=== PATIENT | male | born 1950 | race Caucasian/White ===

== ENCOUNTER 2020-11-17 17:28 | Emergency (ER) | payer OTHER, MEDICARE ==
--- NOTE | 2020-11-17 20:36 | EDM.PDOC ---
ED HPI GENERAL MEDICAL PROBLEM - General Chief Complaint: Back Pain or Injury Stated Complaint: NEUROPOTHY/BACK AND LEG PAIN/WEAK Time Seen by Provider: 11/17/20 20:10 Source of Information: Reports: Patient History Limitations: Reports: No Limitations - History of Present Illness INITIAL COMMENTS - FREE TEXT/NARRATIVE: Presents emergency room today secondary to increasing low back pain and leg weakness. Dates that he is visiting from the [facility] has been appear the last 2 days and has noted increasing pain and weakness when up and about today he felt the pain got so great that his legs were unable to support him he is sleeping on a strange bed as they are seen in a local motel he reports that low back pain is sharp in nature 8-9 out of 10 currently when attempting to get up and move around it is a 10 out of 10 sharp in nature his legs he states feel achy increased and burning sensation. States that he does have a fall history although it has been a couple of years since he has had any falls and that has occurred on stairs at his house in which she has hand rails has not had any recent problems. 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 Patient states that he uses medical marijuana for chronic pain plus a cream to his legs which seems to help with sleep he states usually he does take the medical marijuana which is liquid at night as well as the cream on his legs and he is able to wake up fairly pain- free in the morning but as the day progresses he has increasing low back pain peripheral neuropathy achiness and weakness that increases in nature. Days ER visit is not different other than it is increased in nature overall. Denies any recent falls injuries or accidents. 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 and that his physicians feel that that is a cause of his chronic pain syndrome RSD and neuropathy he is not a diabetic PMHchronic pain syndrome RSD of upper extremities peripheral neuropathy of extremities pacer/defibrillator in place CAD CHF Meds--patient does not know his medications, he has a friend who is with him and they will run to the hotel in order to pick them up and bring them back for review as he is not from local area Medication allergiesmorphine penicillin and vancomycin Lower Back Pain Score (Numeric/FACES): 10 - Related Data Allergies Allergy/AdvReac Type Severity Reaction Status Date / Time morphine Allergy Anaphylactic Verified 11/17/20 19:07 Shock Penicillins Allergy Anaphylactic Verified 11/17/20 19:07 Shock vancomycin Allergy Anaphylactic Verified 11/17/20 19:07 Shock Home Meds: Home Meds Albuterol Sulfate [Albuterol Sulfate Hfa] 1 puff IH ASDIRECTED 11/17/20 [Histo ry] Cannabidiol (Cbd) Extract [CBD Oil] 0.1 - 1 ml PO Q6H PRN 11/17/20 [History] Diclofenac Sodium [Arthritis Pain Reliever] 1 applic TOP QID PRN 11/17/20 [History] Ezetimibe [Zetia] 10 mg PO DAILY 11/17/20 [History] Fluticasone Propionate [Flovent] 1 - 2 sprays NASBOTH ASDIRECTED 11/17/20 [History] Isosorbide Mononitrate [Isosorbide Mononitrate ER] 60 mg PO DAILY 11/17/20 [History] Nitroglycerin 0.4 mg SL ASDIRECTED 11/17/20 [History] Rosuvastatin [Crestor] 40 mg PO DAILY 11/17/20 [History] Sotalol [Betapace] 80 mg PO DAILY 11/17/20 [History] Warfarin [Coumadin] 2 mg PO ASDIRECTED 11/17/20 [History] lisinopriL [Lisinopril] 5 mg PO DAILY 11/17/20 [History] traMADol [Ultram] 50 mg PO ASDIRECTED 11/17/20 [History] Past Medical History HEENT History: Reports: Impaired Vision Cardiovascular History: Reports: Afib, Bypass, High Cholesterol, Hypertension, Pacemaker, Stents Other Cardiovascular History: stimulator Respiratory History: Reports: Asthma, Sleep Apnea Other Respiratory History: cpap Gastrointestinal History: Reports: None Musculoskeletal History: Reports: Back Pain, Chronic, Other (See Below) Other Musculoskeletal History: RSD Neurological History: Reports: None Psychiatric History: Reports: Anxiety Hematologic History: Reports: Anticoagulation Therapy - Infectious Disease History Infectious Disease History: Reports: Chicken Pox, Influenza, Measles, Mumps, Scarlet Fever, Shingles - Past Surgical History Head Surgeries/Procedures: Reports: None HEENT Surgical History: Reports: None Cardiovascular Surgical History: Reports: Carotid Stents Respiratory Surgical History: Reports: None GI Surgical History: Reports: Cholecystectomy Neurological Surgical History: Reports: Other (See Below) Other Neurological Surgeries/Procedures: spinal cord stimulator Musculoskeletal Surgical History: Reports: Other (See Below) Other Musculoskeletal Surgeries/Procedures:: left hand fingers Dermatological Surgical History: Reports: None Social & Family History - Tobacco Use Tobacco Use Status *Q: Never Tobacco User Second Hand Smoke Exposure: No - Caffeine Use Caffeine Use: Reports: Coffee, Tea - Recreational Drug Use Recreational Drug Use: Yes Drug Use in Last 12 Months: No Recreational Drug Type: Reports: Marijuana/Hashish ED ROS GENERAL - Review of Systems Review Of Systems: Comprehensive ROS is negative, except as noted in HPI. Constitutional: Reports: No Symptoms HEENT: Reports: No Symptoms Respiratory: Reports: No Symptoms Cardiovascular: Reports: No Symptoms Endocrine: Reports: No Symptoms GI/Abdominal: Reports: No Symptoms : Reports: No Symptoms Musculoskeletal: Reports: Back Pain, Muscle Pain, Other (leg weakness) Neurological: Reports: Difficulty Walking, Weakness, Other (increased peripheral neuropathy pain) Psychiatric: Reports: No Symptoms Hematologic/Lymphatic: Reports: No Symptoms Immunologic: Reports: No Symptoms ED EXAM,LOWER BACK PAIN/INJURY - Physical Exam Exam: See Below Exam Limited By: No Limitations General Appearance: Alert, WD/WN, Moderate Distress (secondary to low back pain--increases with movement such as sitting up in bed for exam) Eye Exam: Bilateral Eye: EOMI, Normal Inspection Ears: Normal External Exam, Hearing Grossly Normal Nose: Normal Inspection Throat/Mouth: Normal Inspection, Normal Oropharynx, Normal Voice, No Airway Compromise Head: Atraumatic, Normocephalic Neck: Normal Inspection, Supple, Non-Tender, Full Range of Motion Respiratory/Chest: No Respiratory Distress, Lungs Clear, Normal Breath Sounds Cardiovascular: Normal Peripheral Pulses, Regular Rate, Rhythm, No Edema, No Murmur GI/Abdominal: Normal Bowel Sounds, Soft, Non-Tender, No Distention (Male) Exam: Deferred Rectal (Males) Exam: Deferred Back Exam: Normal Inspection, Decreased Range of Motion (slow to sit up in bed/lay back down secondary to pain), Muscle Spasm (acute muscle spasm episode noted when laying down in bed after sitting up). No: Paraspinal Tenderness, Vertebral Tenderness Extremities: Normal Inspection, Normal Capillary Refill Neurological: Alert, Normal Mood/Affect, Oriented x 3 Psychiatric: Normal Affect, Normal Mood Skin Exam: Warm, Dry, Intact, Normal Color Course - Vital Signs Text/Narrative:: 2034--requested if patient could have his friend retrieve medications for review from [facility], in the mean time will obtain CT lumbar spine to evaluate back pain concern further 2099--patient's friend has brought medications in from [facility]. Medications have been updated in EMR as well as reviewed by physician here in the emergency room. Patient has 4 different THC containing medications but no other apparent pain medications or nerve related medications are noted. She did state to me that he has previously used lidocaine patches but does not currently use them and there is no apparent use of any gabapentin or Lyrica for his peripheral neuropathy. This time awaiting CT lumbar spine to return further discussion of care recommendations 2240--the lumbar spine has returned printed a copy will place on patient's discharge paperwork as well as request radiology to provide a disc. Discussed with patient line by line findings and impression of CT lumbar spine. Recommended care options include use of lidocaine patches (patient states that he has those available at home). Will provide limited prescription of tramadol as well as the prednisone taper for pain that he is currently having an acute episode. Strongly recommended that patient follow-up with his family doctor/primary care provider in regards to further discussion of these results as well as referral to pain management and neurosurgery for other options in chronic care needs, verbalized understanding and agreement with plan of care is ready for discharge Last Recorded V/S: Last Vital Signs Temp 97.0 F 11/17/20 19:17 Pulse 53 L 11/17/20 19:17 Resp 18 11/17/20 19:17 BP 126/80 11/17/20 19:17 Pulse Ox 96 11/17/20 19:17 - Radiology Interpretation Free Text/Narrative:: CT lumbar spine noted for the following-- Findings: #1 the vertebral bodies are normal in height and they are in anatomical alignment there is no sign of fracture or subluxation #2 there is minimal scoliosis of the lumbar spine convex towards the left T12-L1: Normal L1-2: Minimal posterior subluxation of L1 on L2 minimal diffuse disc bulging without spinal stenosis no foraminal stenosis normal disc height L2-3: Minimal disc diffuse bulging without spinal stenosis there is mild right greater than left lateral disc bulge into the nares neural foramen without contact on existing nerve root normal disc height L3-4: Mild spinal stenosis produced by mild diffuse disc bulge with mild posterior osteophytic ridging and mild ligamentum flavum hypertrophy moderate right lateral disc bulge into the nares neural foramen comes into contact with right L3 nerve root without effacement of a significant amount of perineural fat moderate left lateral disc bulge into the interim neural foramen without contact with the existing nerve root moderate loss of disc height from disc degenerative disease L4-5: Minimal disc diffuse bulging without spinal stenosis moderate bilateral lateral disc bulging into the neural neural naranjo without impingement upon the existing nerve roots moderate left and mild right facet atrophy normal disc height L5-S1: Minimal diffuse disc bulging without spinal stenosis no foraminal stenosis moderate left fossa arthropathy minimal right facet arthropathy the visualized abdominal viscera is normal in appearance Impression: #1 mild spinal stenosis at L3-4 #2 lateral disc bulge into neuro neural foramen on the right at L3-4, coming into contact with existing left L3 nerve root Departure - Departure Time of Disposition: 22:48 Disposition: Home, Self-Care 01 Condition: Good Clinical Impression: Chronic pain syndrome, Acute exacerbation of chronic low back pain, Peripheral neuropathy, Lumbar degenerative disc disease, Bulging lumbar disc - Discharge Information *PRESCRIPTION DRUG MONITORING PROGRAM REVIEWED*: Yes (WATCH 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 No acute concerns noted) *COPY OF PRESCRIPTION DRUG MONITORING REPORT IN PATIENT CHACHA: No Instructions: Chronic Back Pain, [id number] Referrals: PCP,None [Primary Care Provider] - Forms: ED Department Discharge Additional Instructions: As discussed you may consider use of ice or heat as you find comfortable and helpful with pain. Do not sleep with a heating pad as this may cause additional injury such as skin lima You may consider starting use of Lidoderm patches--these are available [id number] as the brand-name [place]. It is recommended that you wear 1 patch 12 hours on/remove for 12 hours before placing another patch. He must have this break in lidocaine patches in order for them to be effective. Desire prescription for these patches and you must see your primary care provider or your automotive painter helper. We will provide prescription for tramadol and prednisone taper this should help with your pain and inflammation I have provided you a copy of your CT lumbar spine as well as a disc to take to your primary care provider for further discussion it is recommended that you request a referral to neurosurgery and/or pain management for further evaluation and care You have ask about obtaining a back brace--May try this and find it helpful, as are available [id number] without a prescription either in [facility] or other stores of that nature Sepsis Event Note (ED) - Evaluation Sepsis Screening Result: No Definite Risk - Focused Exam Vital Signs: Vital Signs Temp Pulse Resp BP Pulse Ox 11/17/20 19:17 97.0 F 53 L 18 126/80 96 11/17/20 19:05 97.0 F 53 L 18 126/80 96
--- NOTE | 2020-11-17 21:53 | CRLCT ---
For Patients: As a result of the Century Cures Act, medical imaging exams and procedure reports are released immediately into your electronic medical record. You may view this report before your referring provider. If you have questions, please contact your health care provider. INDICATION: Increasing leg weakness and low back pain for the past 2 days. COMPARISON: None available TECHNIQUE: CT examination of the lumbar spine is performed with spiral technique without contrast. Two mm thick axial, sagittal and coronal reconstructions were made. Please note that all CT scans at this facility use dose modulation, iterative reconstruction, and/or weight-based dosing when appropriate to reduce radiation dose to as low as reasonably achievable. FINDINGS: : The vertebral bodies are normal in height and they are in anatomic alignment. There is no sign of fracture or subluxation. There is minimal scoliosis of the lumbar spine convex towards the left. T12-L1: Normal. L1-2: Minimal posterior subluxation of L1 on L2. Minimal diffuse disc bulging without spinal stenosis. No foraminal stenosis. Normal disc height. L2-3: Minimal diffuse disc bulging without spinal stenosis. There is mild right greater than left lateral disc bulging into the neural foramina without contact with the exiting nerve roots. Normal disc height. L3-4: Mild spinal stenosis produced by mild diffuse disc bulging with mild posterior osteophytic ridging and mild ligamentum flavum hypertrophy. Moderate right lateral disc bulging into the neuroforamen comes into contact with the right L3 nerve root, without effacement of a significant amount of perineural fat. Moderate left lateral disc bulging into the neural foramina without contact with the exiting nerve root. Moderate loss of disc height from disc degenerative disease. L4-5: Minimal diffuse disc bulging without spinal stenosis. Moderate bilateral lateral disc bulging into the neural foramina, without impingement upon the exiting nerve roots. Moderate left and mild right facet arthropathy. Normal disc height. L5-S1: Minimal diffuse disc bulging without spinal stenosis. No foraminal stenosis. Moderate left facet arthropathy. Minimal right facet arthropathy. The visualized abdominal viscera is normal in appearance. IMPRESSION: Mild spinal stenosis at L3-4. Lateral disc bulging into the neural foramina on the right at L3-4, coming into contact with the exiting left L3 nerve root. Please note that all CT scans at this facility use dose modulation, iterative reconstruction, and/or weight-based dosing when appropriate to reduce radiation dose to as low as reasonably achievable. Dictated by Brayden Ridley MD @ 11/17/2020 9:52:[address] Brayden Ridley @ Nov 17 2020 9:52PM
== END 2020-11-17 23:06 | disposition home or self-care (01) ==
LOC: JP.ED 17:28
DX: M51.26 Other intervertebral disc displacement, lumbar region (principal); M51.36 Other intervertebral disc degeneration, lumbar region; G89.4 Chronic pain syndrome; G62.9 Polyneuropathy, unspecified; I48.91 Unspecified atrial fibrillation; E78.00 Pure hypercholesterolemia, unspecified; I10 Essential (primary) hypertension; Z95.1 Presence of aortocoronary bypass graft; J45.909 Unspecified asthma, uncomplicated; Z88.5 Allergy status to narcotic agent; Z88.0 Allergy status to penicillin; Z88.1 Allergy status to other antibiotic agents; Z79.01 Long term (current) use of anticoagulants; Z79.899 Other long term (current) drug therapy
CPT/HCPCS: 72131; 99284-25